=== PATIENT | male | born 1980 | race Caucasian/White ===

== ENCOUNTER 2018-10-17 00:50 | Emergency (ER) | payer OTHER ==
[~2018-10-17] VITALS: Ht 165.1 cm; Wt 72.6 kg
[2018-10-17 01:05] VITALS: Ht 165.1 cm; Wt 72.6 kg
[2018-10-17 01:49] VITALS: BP 132/78
== END 2018-10-17 01:49 | disposition other institution (70) ==
LOC: ED 00:50
DX: G89.29 Other chronic pain (principal); M54.5 Low back pain; R07.89 Other chest pain; F17.210 Nicotine dependence, cigarettes, uncomplicated; Z13.89 Encounter for screening for other disorder
CPT/HCPCS: Q0092

== ENCOUNTER 2018-10-17 00:50 | Emergency (ER) | payer OTHER | END 2018-10-17 01:49 | disposition other institution (70) | LOC: ED 00:50 | DX: Z02.89 Encounter for other administrative examinations (principal) ==